=== PATIENT | female | born 1970 | race Caucasian/White ===

== ENCOUNTER 2020-10-15 08:00 | Emergency (ER) | payer OTHER ==
[2020-10-15 08:16] VITALS: RESP 18; TEMP 98.3
[2020-10-15] MEDS: SODIUM CHLORIDE 0.9% 1,000 ML IV STA (08:24)
[2020-10-15 08:48] LABS: ALT 12 U/L (4-34); AST 21 U/L (14-36); African American GFR (CKD) >90 (>60 ml/min/1.73 sqM); Albumin 4.3 g/dL (3.5-5.0); Alkaline Phosphatase 77 U/L (38-126); Anion Gap 9 mmol/L; Blood Urea Nitrogen 12 mg/dL (7-17); Carbon Dioxide 20 mmol/L (22-30); Chloride 109 mmol/L (98-107); Glucose 102 mg/dL (74-99); Non-African American GFR(CKD) >90 (>60 ml/min/1.73 sqM); Potassium 4.4 mmol/L (3.5-5.1); Sodium 138 mmol/L (137-145); Total Bilirubin 0.9 mg/dL (0.2-1.3)
--- NOTE | 2020-10-15 09:09 | XR ---
EXAMINATION TYPE: XR chest 2V DATE OF EXAM: 10/15/2020 COMPARISON: NONE TECHNIQUE: PA and lateral views submitted. HISTORY: Difficulty breathing FINDINGS: The lungs are clear and there is no pneumothorax, pleural effusion, or focal pneumonia. Heart size normal. Hyperinflation suggests COPD. Hypertrophic and degenerative change of the spine. Diffuse oste openia and arthropathy of the shoulders. IMPRESSION: 1. No acute process. Correlate for COPD.
[2020-10-15 09:27] LABS: Basophils # (A) 0.1 k/uL (0-0.2); Basophils % (A) 1 %; Eosinophils # (A) 0.2 k/uL (0-0.7); Eosinophils % (A) 1 %; HCT 46.9 % (34.0-46.0); HGB 15.6 gm/dL (11.4-16.0); Lymphocytes # (A) 2.2 k/uL (1.0-4.8); Lymphocytes % (A) 14 %; MCHC 33.3 g/dL (31.0-37.0); MCV 96.3 fL (80.0-100.0); Mean Platelet Volume 8.1; Monocytes # (A) 0.8 k/uL (0-1.0); Monocytes % (A) 5 %; Neutrophils # (A) 11.9 k/uL (1.3-7.7); Neutrophils % (A) 78 %; Platelet Count 396 k/uL (150-450); RBC 4.87 m/uL (3.80-5.40); WBC 15.3 k/uL (3.8-10.6)
--- NOTE | 2020-10-15 09:54 | ED ---
SOB HPI - General Chief Complaint: Shortness of Breath Stated Complaint: SOB Time Seen by Provider: 10/15/20 08:03 Source: patient, EMS, RN notes reviewed Limitations: no limitations - History of Present Illness Initial Comments: Patient is a 50-year-old female that presents to emergency room complaining of shortness of breath for the past several days. She notes that she's been taking DayQuil Oliver Claritin to help alleviate symptoms. She notes that she does have seasonal ALLERGIES. She notes that the day she came in for evaluation because it got mildly worse. She denied any chest pain. She notes that she just feels rundown and wanted make sure that she didn't have any pneumonias or emergency type problems. She denied any headache nausea vomiting diarrhea constipation fever fatigue chills. She notes that she did have Covid back in January but has not been tested recently. - Related Data Previous Rx's Medication Instructions Recorded Hydrocodone/Acetaminophen [[place] 1 each PO Q4HR PRN #20 tab 09/16/13 5-325] Ketorolac [Toradol] 10 mg PO Q6HR #15 tab 09/16/13 Tamsulosin HCl [Flomax] 0.4 mg PO DAILY #10 cap 09/16/13 Allergies Allergy/AdvReac Type Severity Reaction Status Date / Time No Known Allergies Allergy Verified 09/16/13 06:32 Review of Systems ROS Statement: Those systems with pertinent positive or pertinent negative responses have been documented in the HPI. ROS Other: All systems not noted in ROS Statement are negative. Past Medical History Additional Past Medical History / Comment(s): KIDNEY STONE History of Any Multi-Drug Resistant Organisms: None Reported Past Surgical History: No Surgical Hx Reported Past Psychological History: No Psychological Hx Reported Past Alcohol Use History: Occasional Past Drug Use History: None Reported General Exam Limitations: no limitations General appearance: alert, in no apparent distress Head exam: Present: atraumatic, normocephalic, normal inspection Eye exam: Present: normal appearance, PERRL, EOMI. Absent: scleral icterus, conjunctival injection, periorbital swelling Neck exam: Present: normal inspection Respiratory exam: Present: normal lung sounds bilaterally. Absent: respiratory distress, wheezes, rales, rhonchi, stridor Cardiovascular Exam: Present: regular rate, normal rhythm, normal heart sounds. Absent: systolic murmur, diastolic murmur, rubs, gallop, clicks GI/Abdominal exam: Present: soft, normal bowel sounds. Absent: distended, tenderness, guarding, rebound, rigid Extremities exam: Present: normal inspection, full ROM, normal capillary refill. Absent: tenderness, pedal edema, joint swelling, calf tenderness Neurological exam: Present: alert, oriented X3 Psychiatric exam: Present: normal affect, normal mood Skin exam: Present: warm, dry, intact, normal color. Absent: rash Course Vital Signs 10/15/20 08:12 Temperature 98.3 F Pulse Rate 74 Respiratory 18 Rate Blood Pressure 120/80 O2 Sat by Pulse 98 Oximetry Medical Decision Making - Medical Decision Making 50-year-old female complaining of shortness of breath for the past several days. Labs, chest x-ray, EKG, environmental monitoring technician, Covid test ordered. Labs: White blood cells 15.3, rest unremarkable. Chest x-ray shows hyperinflation possible COPD. Covid test negative. Given patient's critical symptoms and lab results most likely has a upper respiratory tract infection. Case discussed with Dr. Celeste, patient can discharge home with follow-up primary care. - Lab Data Result diagrams: 10/15/20 08:22 10/15/20 08:22 Lab Results 10/15/20 10/15/20 10/15/20 Range/Units 08:22 08:22 08:22 WBC 15.3 H (3.8-10.6) k/uL RBC 4.87 (3.80-5.40) m/uL Hgb 15.6 (11.4-16.0) gm/dL Hct 46.9 H (34.0-46.0) % MCV 96.3 (80.0-100.0) fL MCH 32.0 (25.0-35.0) pg MCHC 33.3 (31.0-37.0) g/dL RDW 13.0 (11.5-15.5) % Plt Count 396 (150-450) k/uL MPV 8.1 Neutrophils % 78 % Lymphocytes % 14 % Monocytes % 5 % Eosinophils % 1 % Basophils % 1 % Neutrophils # 11.9 H (1.3-7.7) k/uL Lymphocytes # 2.2 (1.0-4.8) k/uL Monocytes # 0.8 (0-1.0) k/uL Eosinophils # 0.2 (0-0.7) k/uL Basophils # 0.1 (0-0.2) k/uL Sodium 138 (137-145) mmol/L Potassium 4.4 (3.5-5.1) mmol/L Chloride 109 H (98-107) mmol/L Carbon Dioxide 20 L (22-30) mmol/L Anion Gap 9 mmol/L BUN 12 (7-17) mg/dL Creatinine 0.67 (0.52-1.04) mg/dL Est GFR (CKD-EPI)AfAm >90 (>60 ml/min/1.73 sqM) Est GFR (CKD-EPI)NonAf >90 (>60 ml/min/1.73 sqM) Glucose 102 H (74-99) mg/dL Plasma Lactic Acid Sam 1.3 (0.7-2.0) mmol/L Calcium 10.0 (8.4-10.2) mg/dL Total Bilirubin 0.9 (0.2-1.3) mg/dL AST 21 (14-36) U/L ALT 12 (4-34) U/L Alkaline Phosphatase 77 (38-126) U/L Total Protein 7.0 (6.3-8.2) g/dL Albumin 4.3 (3.5-5.0) g/dL Coronavirus (PCR) (Not Detectd) 10/15/20 Range/Units 08:22 WBC (3.8-10.6) k/uL RBC (3.80-5.40) m/uL Hgb (11.4-16.0) gm/dL Hct (34.0-46.0) % MCV (80.0-100.0) fL MCH (25.0-35.0) pg MCHC (31.0-37.0) g/dL RDW (11.5-15.5) % Plt Count (150-450) k/uL MPV Neutrophils % % Lymphocytes % % Monocytes % % Eosinophils % % Basophils % % Neutrophils # (1.3-7.7) k/uL Lymphocytes # (1.0-4.8) k/uL Monocytes # (0-1.0) k/uL Eosinophils # (0-0.7) k/uL Basophils # (0-0.2) k/uL Sodium (137-145) mmol/L Potassium (3.5-5.1) mmol/L Chloride (98-107) mmol/L Carbon Dioxide (22-30) mmol/L Anion Gap mmol/L BUN (7-17) mg/dL Creatinine (0.52-1.04) mg/dL Est GFR (CKD-EPI)AfAm (>60 ml/min/1.73 sqM) Est GFR (CKD-EPI)NonAf (>60 ml/min/1.73 sqM) Glucose (74-99) mg/dL Plasma Lactic Acid Sam (0.7-2.0) mmol/L Calcium (8.4-10.2) mg/dL Total Bilirubin (0.2-1.3) mg/dL AST (14-36) U/L ALT (4-34) U/L Alkaline Phosphatase (38-126) U/L Total Protein (6.3-8.2) g/dL Albumin (3.5-5.0) g/dL Coronavirus (PCR) Not Detected (Not Detectd) - EKG Data -: EKG Interpreted by Nh EKG shows normal: sinus rhythm Rate: normal EKG Comments: Ventricular rate 70 bpm, KS interval 142 ms, QRS duration 88 ms, QTC 440 ms, PRT axes 54/87/51. Normal sinus rhythm, normal ECG. Disposition Clinical Impression: COPD (chronic obstructive pulmonary disease), Upper respiratory tract infection Disposition: HOME SELF-CARE Condition: Stable Instructions (If sedation given, give patient instructions): Acute Bronchitis (ED) Additional Instructions: Please return to the Emergency Department if symptoms worsen or any other concerns. Follow-up with primary care next 1-2 days. Continue take at home medications as needed for symptom medic control. Increase oral fluids. Get plenty rest. Is patient prescribed a controlled substance at d/c from ED?: No Referrals: Dolores Pulido MD [Primary Care Provider] - 1-2 days Time of Disposition: 09:53
[2020-10-15 10:09] VITALS: BP 115/66; PULSE 70
== END 2020-10-15 10:12 | disposition home or self-care (01) ==
LOC: EC 08:00 → SUPCPDRO 08:00 → EC 10:12
DX: J06.9 Acute upper respiratory infection, unspecified (principal); J44.9 Chronic obstructive pulmonary disease, unspecified; Z20.822 Contact with and (suspected) exposure to COVID-19
CPT/HCPCS: 36415; 71046; 80053; 83605; 85025; 87635; 93005; 96360; 96361; 99285